=== PATIENT | male | born 1990 | race Caucasian/White ===

== ENCOUNTER 2017-06-27 03:05 | Emergency (ER) | payer OTHER ==
[~2017-06-27 03:05] MED LIST: NOHOMEMEDICATIONS
== END 2017-06-27 04:25 ==
LOC: M.ERS 03:05
DX: Z02.89 Encounter for other administrative examinations (principal)

== ENCOUNTER 2020-12-04 08:18 | Inpatient (IN) | payer OTHER ==
[~2020-12-04] VITALS: Ht 177.8 cm; Wt 99.8 kg
[2020-12-04 08:25] VITALS: BP 141/94
[2020-12-04 09:13] LABS: URINE BILIRUBIN NEGATIVE (Negative); URINE BLOOD NEGATIVE (Negative); URINE CLARITY CLEAR; URINE COLOR YELLOW; URINE GLUCOSE-RANDOM NEGATIVE (Negative); URINE KETONES NEGATIVE (Negative); URINE LEUKOCYTES-REFLEX NEGATIVE (Negative); URINE NITRITE-REFLEX NEGATIVE (Negative); URINE PROTEIN NEGATIVE (Negative); URINE UROBILINOGEN 0.2 E.U./dl (0.2-1.0)
[2020-12-04 09:37] LABS: ABSOLUTE EOSINOPHILS 0.1 thou/uL (0.0-0.7); ABSOLUTE LYMPHOCYTES 0.7 thou/uL (0.8-5.3); ABSOLUTE MONOCYTES 0.7 thou/uL (0.0-1.2); ABSOLUTE NEUTROPHILS 10.1 thou/uL (1.6-8.1); BASOPHILS 0.2 %; EOSINOPHILS 0.6 %; HEMATOCRIT 44.5 % (42.0-52.0); HEMOGLOBIN 15.7 gm/dL (14.0-18.0); LYMPHOCYTES 6.2 %; MCH 30.6 pg (26.0-34.0); MCHC 35.2 g/dL (28.0-37.0); MCV 86.9 fL (80.0-100.0); MONOCYTES 5.7 %; MPV 7.3 fl. (7.2-11.1); NUCLEATED RBCS 0 /100WBC; PLATELET COUNT* 252 thou/uL (150-400); POLYS 87.3 %; RBC 5.12 mil/uL (4.50-6.00); RDW-CV 12.7 % (10.5-14.5); WBC 11.6 thou/uL (4.0-11.0)
[2020-12-04 09:54] LABS: CALCIUM 9.3 mg/dL (8.5-10.1); POTASSIUM 3.9 mmol/L (3.5-5.1)
[2020-12-04 10:00] LABS: ALBUMIN 4.5 g/dL (3.4-5.0); TOTAL BILIRUBIN 0.8 mg/dL (<0.1-1.0); TOTAL PROTEIN 8.4 g/dL (6.4-8.2)
--- NOTE | 2020-12-04 16:10 | EKG ---
[place] [address] ELECTROCARDIOGRAM REPORT Name: THEOYENI Room: [place] [address] ADM IN ..#: [id number] Admission: 12/04/20 Attend Phys: Jose Luis Dubois, Discharge: Date of : 86 Date of Service: 12/04/20930 Report #: [id number] THIS REPORT FOR: //name// [facility] ED Test Date: 2020-12-04 Test Time: 09:31:36 Pat Name: YENI VENEGAS Department: Room: [facility] Gender: M Real Estate Administrator: CLIFFORD : 1990 Requested By: Manny Schreiber Order Number: [id number] MD: Zion Donnelly Measurements Intervals [place] Rate: 62 P: 10 AR: 146 QRS: 13 QRSD: 108 T: 28 QT: 425 QTc: 432 Interpretive Statements Sinus rhythm No previous ECG available for comparison Electronically Signed On 12-04-2020 16:10:00 CDT by Zion Donnelly [email or web address] <ELECTRONICALLY SIGNED> By: Zion Donnelly MD, [facility] 12/04/20 1610 Zion Donnelly MD, [facility] /EPI
[2020-12-04 16:52] LABS: AMP/METHAMP Negative (Negative); BARBITURATES Negative (Negative); BENZODIAZEPINES Negative (Negative); COCAINE Negative (Negative); METHADONE Negative (Negative); OPIATES Negative (Negative); PCP Negative (Negative); THC Negative (Negative)
[2020-12-04 17:40] VITALS: BP 130/72
[2020-12-04 21:00] VITALS: BP 130/80
[2020-12-05] VITALS (7 sets, daily range): BP systolic 99–134; BP diastolic 56–81
[2020-12-05 03:56] LABS: ABSOLUTE EOSINOPHILS 0.1 thou/uL (0.0-0.7); ABSOLUTE MONOCYTES 0.7 thou/uL (0.0-1.2); BASOPHILS 0.2 %; EOSINOPHILS 1.2 %; HEMATOCRIT 40.3 % (42.0-52.0); HEMOGLOBIN 14.6 gm/dL (14.0-18.0); LYMPHOCYTES 10.9 %; MCH 31.3 pg (26.0-34.0); MCHC 36.2 g/dL (28.0-37.0); MCV 86.4 fL (80.0-100.0); MONOCYTES 8.4 %; MPV 7.4 fl. (7.2-11.1); NUCLEATED RBCS 0 /100WBC; PLATELET COUNT* 231 thou/uL (150-400); POLYS 79.3 %; RBC 4.66 mil/uL (4.50-6.00); RDW-CV 12.8 % (10.5-14.5); WBC 8.8 thou/uL (4.0-11.0)
[2020-12-05 04:29] LABS: ALBUMIN 3.8 g/dL (3.4-5.0); CALCIUM 8.4 mg/dL (8.5-10.1); CREATININE 1.1 mg/dL (0.6-1.3); TOTAL BILIRUBIN 1.3 mg/dL (<0.1-1.0); TOTAL PROTEIN 7.5 g/dL (6.4-8.2)
[2020-12-06 06:05] LABS: ABSOLUTE EOSINOPHILS 0.2 thou/uL (0.0-0.7); ABSOLUTE LYMPHOCYTES 1.1 thou/uL (0.8-5.3); ABSOLUTE MONOCYTES 0.6 thou/uL (0.0-1.2); ABSOLUTE NEUTROPHILS 3.9 thou/uL (1.6-8.1); BASOPHILS 0.2 %; EOSINOPHILS 2.7 %; LYMPHOCYTES 19.6 %; MONOCYTES 9.9 %; MPV 7.1 fl. (7.2-11.1); NUCLEATED RBCS 0 /100WBC; PLATELET COUNT* 240 thou/uL (150-400); POLYS 67.6 %; RBC 4.53 mil/uL (4.50-6.00); RDW-CV 12.6 % (10.5-14.5); WBC 5.8 thou/uL (4.0-11.0)
[2020-12-06 06:16] LABS: ALBUMIN 3.4 g/dL (3.4-5.0); CALCIUM 8.8 mg/dL (8.5-10.1); MAGNESIUM 2.3 mg/dL (1.8-2.4); POTASSIUM 4.6 mmol/L (3.5-5.1); TOTAL BILIRUBIN 1.2 mg/dL (<0.1-1.0); TOTAL PROTEIN 7.4 g/dL (6.4-8.2)
[2020-12-06 08:15] VITALS: BP 117/66
[2020-12-06] MEDS ORDERED: ROXICODONE5 MG PO (13:55)
[2020-12-06 17:51] VITALS: BP 117/66
[2020-12-06 18:44] VITALS: BP 117/66
--- NOTE | 2020-12-09 12:11 | OP ---
[address] [address] OPERATIVE REPORT Name: VEE VENEGASRIN MATT Room: [address]#: [id number] Admission: 12/04/20 Attend Phys: Jose Luis Dubois MD Discharge: 12/06/20 Date of : [birth year] Report #: [id number] THIS REPORT FOR: cc: FAM - No family physician/PCP FAM - No family physician/PCP Gabi Manjarrez DO ~ DATE OF SURGERY: 12/06/2020 PREOPERATIVE DIAGNOSIS: Symptomatic cholelithiasis. POSTOPERATIVE DIAGNOSIS: Chronic cholecystitis with cholelithiasis with obstruction of the cystic duct. FINDINGS: Distended, thick walled gallbladder with a large stone impacted in the neck of the gallbladder. SURGEON: Gabi Manjarrez DO COSURGEON: Stu Mann, PGY2 HYPERION DEVELOPER: KEVIN Whitley PROCEDURE PERFORMED: Laparoscopic cholecystectomy. ANESTHESIA: General endotracheal with local and TAP block. ESTIMATED BLOOD LOSS: 5 mL DRAINS: None. SPECIMENS: Gallbladder. COMPLICATIONS: None. CONDITION: Stable. DISPOSITION: PACU to the floor and home later today. HISTORY OF PRESENT ILLNESS: The patient is a 30-year-old gentleman who presented to the hospital with complaint of right upper quadrant abdominal pain. Ultrasound was completed which showed acute cholecystitis and cholelithiasis. He was then consented for laparoscopic cholecystectomy. Risks discussed included bleeding, infection, pain, scar formation, injury to bowel, liver, bile duct, hernia at the incision sites, need for an open procedure and risks of general anesthesia. The patient understood these risks [place] [address] OPERATIVE REPORT Name: THEOYENI Room: [address] IN ..#: [id number] Admission: 12/04/20 Attend Phys: Jose Luis Dubois MD Discharge: 12/06/20 Date of : 86 Report #: [id number] DESCRIPTION OF PROCEDURE: The patient was brought to the operating room. He was laid supine on the operating room table. SCDs were placed on bilateral lower extremities. Ancef was given in the perioperative period. General endotracheal anesthesia was induced by Anesthesia without difficulty. Abdomen was prepped and draped in standard sterile fashion. Timeout was performed to verify the patient and procedure. A 10 mL of 0.5% Marcaine were injected in the infraumbilical area. Incision was made with 11 blade. Cautery was used for hemostasis. S retractors were used to visualize the fascia. The fascia was grasped and elevated between 2 Kochers. The fascia was incised using cautery. Peritoneum was bluntly entered using a Ange clamp. Finger was introduced into the abdomen to assure that there were no adonis-incisional adhesions, none were identified. Two stitches of 0 Vicryl were placed on the fascia. Nguyen trocar was introduced and secured with 0 Vicryl stitches. Abdomen was insufflated. The patient was placed head up and tilted left side down. Camera was introduced and a brief anterior abdominal exploration was undertaken with findings of a distended gallbladder. Three 5 mm trocars were introduced, one in the subxiphoid area and two in the right upper quadrant, all under direct visualization. The gallbladder was quite tense and could not be grasped. An aspiration needle was introduced and 30 mL of dark bilious fluid were aspirated with excellent decompression of the gallbladder. The gallbladder was then grasped and elevated. Peritoneum overlying the triangle of Calot was incised using cautery. Duct and artery were then both easily visualized. Both were circumferentially dissected free using a [place] dissector. Both were then doubly clipped and ligated. Gallbladder was removed from the liver bed with some difficulty secondary to a very large stone impacted in the cystic duct which made it difficult to mobilize the gallbladder. Specimen was then placed within an EndoCatch bag. Liver bed was inspected. It was hemostatic. Clips were inspected. They appeared to be intact. There was no bleeding or leakage noted from the area of the clips. Gallbladder had been placed in an EndoCatch bag. Right upper quadrant was copiously irrigated until clear. Trocars were removed under direct visualization. There was no bleeding noted from the peritoneum. Abdomen was completely desufflated. Nguyen trocar was removed and the EndoCatch bag was removed with the specimen intact after extending the fascial incision due to the excessive size of the stone. The specimen was then handed off for permanent pathology. Kochers were placed on the fascia of our infraumbilical port. Previously placed 0 Vicryl stitches were removed and a 0 Vicryl stitch was placed in a begfci-ck-ciwan fashion with excellent approximation of the fascia. An additional 10 mL of 0.5% Marcaine were injected in the fascia. The wound was then closed in a layered fashion using deep and superficial stitches of 3-0 Vicryl in an inverted interrupted fashion. Skin wounds were all closed with 4-0 Monocryl. A total of 30 mL of 0.5% Marcaine was used to anesthetize the wounds. Wounds were then cleansed and covered with Dermabond. The patient was then allowed to awaken from the anesthesia, was [place] [id number] OPERATIVE REPORT Name: YENI VENEGAS Room: [address] IN .R.#: [id number] Admission: 12/04/20 Attend Phys: Jose Luis Dubois MD Discharge: 12/06/20 Date of : 86 Report #: [id number] extubated, and transported to the recovery room with no further difficulties. Counts were correct x 2 at the conclusion of the case. <ELECTRONICALLY SIGNED> By: Gabi Manjarrez DO 12/09/20 1211 1502 1718Gabi Manjarrez DO /nt
--- NOTE | 2020-12-11 12:07 | PATH ---
[address] [address] PATHOLOGY RPT PROCEDURE Name: YENI VENEGAS Room: [address] IN .R.#: [id number] Admission: 12/04/20 Date of : 86 Discharge: 12/06/20 Report #: [id number] Path Case #: [id number] [facility] Accession Number: [id number] . 01 Material submitted: . gallbladder - GALLBLADDER . 01 Clinical history: . LAPAROSCOPIC CHOLECYSTECTOMY CHOLELITHIASIS BILIARY COLIC, ABDOMINAL PAIN . 02 Diagnosis: Gallbladder: - Chronic and acute ulcerative cholecystitis with mural fibrosis, cholelithiasis and benign and hyperplastic lymph node. (LION:seun; 12/10/2020) MBR 12/10/2020 1633 Local . 02 Electronically signed: . Prabhakar Guadalupe MD, Pathologist NPI- [id number] . 01 Gross description: . Fixative: Formalin Labeled: Gallbladder Specimen received: Intact Dimensions: 9.4 x 4.4 x 3.5 cm Serosa: Jonas brown, hemorrhagic and dusky Lymph node: sanches-jonas, 1.3 x 1.0 x 0.9 Mucosa: Brown-jonas, granular without cote stippling Wall thickness: Ranges from 0.4 cm to 0.9 cm Calculi: 3 cote-yellow and bosselated, aggregating 3.0 x 2.6 x 1.4 Abnormalities: None . A1-A2: Web Specialist sections of gallbladder A3: Lymph node, entirely submitted(OGLALA [place]; 12/09/2020) DKA/DKA 12/09/2020 1146 Local . 02 Pathologist provided ICD-10: K80.12 . 02 CPT . 285194 Specimen Comment: A courtesy copy of this report has been sent to [phone] Specimen Comment: Report sent to DR. IZQUIERDO Performed at: [address] [place] [address] PATHOLOGY RPT PROCEDURE Name: THEOYENI Room: [address]#: [id number] Admission: 12/04/20 Date of : [birth year] Discharge: 12/06/20 Report #: [id number] Path Case #: [id number] [address] [facility] [address], [place] [id number] MD Shant Abdalla MD Phone: [phone] Performed at: [address] [facility] [address], [place], [place] [id number] MD Prabhakar Guadalupe MD Phone: [phone]
== END 2020-12-06 19:40 | disposition home or self-care (01) | DRG 419 ==
LOC: M.ERS 08:18 → M.3W 15:17 → M.TBA-ER 15:17 → M.3W 15:17
PROVIDERS: Emergency Medicine Emergency Medical Services; Surgery; ADMIT Internal Medicine; ATTEND Internal Medicine
PROC: 0FT44ZZ Resection of Gallbladder, Percutaneous Endoscopic Approach (ICD-10-PCS; principal; 2020-12-06)
PROC: 3E0T3BZ Introduction of Anesthetic Agent into Peripheral Nerves and Plexi, Percutaneous Approach (ICD-10-PCS; principal; 2020-12-06)
DX: K80.65 Calculus of gallbladder and bile duct with chronic cholecystitis with obstruction (principal); D72.829 Elevated white blood cell count, unspecified; F17.210 Nicotine dependence, cigarettes, uncomplicated; Z20.822 Contact with and (suspected) exposure to COVID-19; Z98.84 Bariatric surgery status; Z72.89 Other problems related to lifestyle